=== PATIENT | male | born 1960 | race African-American/Black ===

== ENCOUNTER 2018-08-18 13:08 | Inpatient (IN) | payer OTHER, MEDICAID ==
[~2018-08-18] VITALS: Ht 182.9 cm; Wt 79.8 kg
[2018-08-18 14:11] LABS: BASOPHILS % 0.6 % (0.0-2.0); EOSINOPHILS % 0.8 % (0.0-5.0); HEMATOCRIT. 45.9 % (42.0-52.0); HEMOGLOBIN. 14.8 g/dL (14.0-18.0); LYMPHOCYTES % 34.1 % (20.0-50.0); MEAN CORPUSCULAR HEMOGLOBIN 24.1 pg (28.0-32.0); MEAN CORPUSCULAR VOLUME 74.5 fL (80.0-94.0); MEAN PLATELET VOLUME 9.2 fl (7.4-10.4); MONOCYTES % 8.6 % (2.0-8.0); NEUTROPHILS % 55.9 % (40.0-76.0); PLATELET 151 x1000/uL (130-400); RED BLOOD CELL COUNT 6.16 mill/uL (4.7-6.1)
[2018-08-18 14:16] LABS: CHLORIDE 100 mEq/L (98-107)
[2018-08-18] MEDS ORDERED: ONDANSETRON HCL 4MG/2ML INJ IV STA (14:19)
[2018-08-18] MEDS ORDERED: FAMOTIDINE 20MG/2ML VIAL IV ONE (14:30)
[2018-08-18] MEDS ORDERED: NITROGLYCERIN OINT 1GM/INCH UDPKT TD ONE (14:30)
[2018-08-18] MEDS ORDERED: FUROSEMIDE 40MG/4ML VIAL IV ONE (14:30)
[2018-08-18 15:43] LABS: ETHANOL BLOOD < 10 mg/dL
[2018-08-18 15:59] LABS: CLARITY URINE CLEAR (CLEAR); COLOR URINE DARK YELLOW (YELLOW); KETONES URINE TRACE (NEGATIVE); LEUKOCYTE ESTERASE URINE TRACE (NEGATIVE); NITRITE URINE NEGATIVE (NEGATIVE); OCCULT BLOOD URINE NEGATIVE (NEGATIVE); PROTEIN URINE 2+ (NEGATIVE); SPECIFIC GRAVITY URINE 1.023 (1.005-1.030)
[2018-08-18 16:16] LABS: *AMPHETAMINES SCREEN URINE NEGATIVE (NEGATIVE); *BARBITURATES SCREEN URINE NEGATIVE (NEGATIVE); *BENZODIAZEPINES SCREEN URINE NEGATIVE (NEGATIVE); *COCAINE SCREEN URINE PRESUMTIVE POSITIVE (NEGATIVE)
[2018-08-18 16:17] LABS: CANNABINOID URINE SCREEN NEGATIVE (NEGATIVE); METHADONE URINE SCREEN NEGATIVE (NEGATIVE); OPIATES URINE SCREEN NEGATIVE (NEGATIVE); PHENCYCLIDINE URINE SCREEN NEGATIVE (NEGATIVE)
[2018-08-18] MEDS ORDERED: KETOROLAC 15MG/ML VIAL IV PRN (16:30)
[2018-08-18] MEDS ORDERED: NA PHOS,M-B/NA PHOS,DI-BA ENEMA 118ML PR PRN (16:30)
[2018-08-18] MEDS ORDERED: DOCUSATE SODIUM 100MG CAPSULE PO PRN (16:30)
[2018-08-18] MEDS ORDERED: IPRATROPIUM/ALBUTEROL 0.5-3(2.5)MG/3ML NEB INH PRN (16:30)
[2018-08-18] MEDS ORDERED: CLONIDINE 0.1MG TABLET PO PRN (16:30)
[2018-08-18] MEDS ORDERED: TRAMADOL 50MG TABLET PO PRN (16:30)
[2018-08-18] MEDS ORDERED: LORAZEPAM 0.5MG TABLET PO PRN (16:30)
[2018-08-18] MEDS ORDERED: ACETAMINOPHEN 325MG TABLET PO PRN (16:30)
[2018-08-18] MEDS ORDERED: ONDANSETRON HCL 4MG/2ML INJ IV PRN (16:30)
[2018-08-18] MEDS ORDERED: NITROGLYCERIN 0.4MG TABLET SL SL PRN (16:30)
[2018-08-18] MEDS ORDERED: DIPHENHYDRAMINE 50MG/ML VIAL IV PRN (16:30)
[2018-08-18] MEDS ORDERED: GUAIFENESIN 200MG/10ML SUGAR FREE UDC PO PRN (16:30)
[2018-08-18] MEDS ORDERED: MAGNESIUM/ALUMINUM HYDROXIDE/SIMETHICONE 30ML UDC PO PRN (16:30)
[2018-08-18] MEDS: DILTIAZEM HCL 60MG TABLET PO SCH ×3 (19:00→23:50)
[2018-08-18 19:45] VITALS: BP 116/60
[2018-08-18 20:00] VITALS: BP 90/72
[2018-08-18] MEDS ORDERED: CEFTRIAXONE 1 G PREMIX 50 ML IV SCH (20:00)
[2018-08-18] MEDS ORDERED: ENOXAPARIN 40MG/0.4ML SYR SUBCUT SCH (20:00)
[2018-08-18] MEDS: FUROSEMIDE 40MG/4ML VIAL IVP SCH (20:05)
[2018-08-18] MEDS: FAMOTIDINE 20MG TABLET PO SCH (20:06)
[2018-08-18] MEDS ORDERED: ZOLPIDEM TARTRATE 5MG TABLET PO PRN (21:00)
[2018-08-18] MEDS ORDERED: AZITHROMYCIN 500 MG in DEXT 5% WATER 250 ML IV SCH (21:00)
[2018-08-18 23:50] VITALS: BP 106/79
[2018-08-19 04:00] VITALS: BP 124/95
[2018-08-19] MEDS: DILTIAZEM HCL 60MG TABLET PO SCH ×3 (05:39→17:32)
[2018-08-19] MEDS: FUROSEMIDE 40MG/4ML VIAL IVP SCH ×2 (06:42→17:38)
[2018-08-19 07:35] VITALS: BP 125/87
[2018-08-19] MEDS ORDERED: ASPIRIN 325MG EC TABLET PO SCH (09:00)
[2018-08-19 09:03] LABS: CREATINE KINASE MB FRACTION 3.7 ng/mL (0.5-3.6)
[2018-08-19] MEDS: FAMOTIDINE 20MG TABLET PO SCH (09:07)
[2018-08-19 12:00] VITALS: BP 120/94
[2018-08-19] MEDS: METOLAZONE 10MG TABLET PO NR ×2 (12:41→13:41)
[2018-08-19 16:00] VITALS: BP 106/75
[2018-08-19 18:53] VITALS: BP_SYST 104; BP_SYST 106; BP_DIAS 68; BP_DIAS 75
== END 2018-08-19 21:15 | disposition short-term general hospital (02) | DRG 917 ==
LOC: ER 14:21 → 8WST 15:05 → EDBEDREQ 15:09 → EDBEDREQTM 15:09 → ENRESERV 16:24
PROVIDERS: ADMIT Internal Medicine; ATTEND Internal Medicine
DX: T40.5X1A Poisoning by cocaine, accidental (unintentional), initial encounter (principal); I50.43 Acute on chronic combined systolic (congestive) and diastolic (congestive) heart failure; J96.00 Acute respiratory failure, unspecified whether with hypoxia or hypercapnia; A41.9 Sepsis, unspecified organism; E44.0 Moderate protein-calorie malnutrition; E87.5 Hyperkalemia; F14.10 Cocaine abuse, uncomplicated; Z68.23 Body mass index [BMI] 23.0-23.9, adult; F17.200 Nicotine dependence, unspecified, uncomplicated; K76.1 Chronic passive congestion of liver; Z53.20 Procedure and treatment not carried out because of patient's decision for unspecified reasons; Z91.14 Patient's other noncompliance with medication regimen; Y92.89 Other specified places as the place of occurrence of the external cause
CPT/HCPCS: 36415; 71045; 74176; 80053; 80061; 80305; 81003; 82550; 82553; 83036; 83605; 83690; 83880; 84484; 85025; 93005; 93306; 93970; 94640; 96374; 96375; 99285; G0482; J0456; J0696; J1200; J1940; J2405; J3490; J7040; J7060; J7620

== ENCOUNTER 2018-09-21 14:39 | Emergency (ER) | payer OTHER, MEDICAID ==
[~2018-09-21] VITALS: Ht 172.7 cm; Wt 75.0 kg
[~2018-09-21 14:39] MED LIST: LIDOCAINE HCL/PF 1% 2ML VIAL ONE
[2018-09-21] MEDS ORDERED: IPRATROPIUM BROMIDE (0.02%) 0.5MG/2.5ML NEB HHN STA (14:57)
[2018-09-21] MEDS ORDERED: ALBUTEROL (0.083%) 2.5MG/3ML NEB HHN SCH (15:00)
[2018-09-21 16:47] LABS: BASOPHILS % 1.1 % (0.0-2.0); EOSINOPHILS % 2.2 % (0.0-5.0); HEMATOCRIT. 44.8 % (42.0-52.0); HEMOGLOBIN. 14.5 g/dL (14.0-18.0); LYMPHOCYTES % 39.4 % (20.0-50.0); MEAN CORPUSCULAR HEMOGLOBIN 23.8 pg (28.0-32.0); MEAN CORPUSCULAR VOLUME 73.5 fL (80.0-94.0); MONOCYTES % 10.6 % (2.0-8.0); NEUTROPHILS % 46.7 % (40.0-76.0); PLATELET 226 x1000/uL (130-400)
[2018-09-21 16:52] LABS: INR 1.6; PROTHROMBIN TIME 16.4 sec (9.1-11.1)
[2018-09-21 16:59] LABS: CHLORIDE 98 mEq/L (98-107)
[2018-09-21] MEDS ORDERED: FUROSEMIDE 100MG/10ML VIAL IVP ONE (17:30)
[2018-09-21] MEDS ORDERED: MORPHINE SULFATE 4 MG/ML CPJ (NOT FOR IM USE) IV ONE (18:15)
[2018-09-21 19:27] LABS: CLARITY URINE CLEAR (CLEAR); COLOR URINE DARK YELLOW (YELLOW); KETONES URINE NEGATIVE (NEGATIVE); LEUKOCYTE ESTERASE URINE NEGATIVE (NEGATIVE); NITRITE URINE NEGATIVE (NEGATIVE); OCCULT BLOOD URINE NEGATIVE (NEGATIVE); PH URINE 5.5 (4.5-8.0); PROTEIN URINE 1+ (NEGATIVE); SPECIFIC GRAVITY URINE 1.011 (1.005-1.030)
[2018-09-21 20:29] VITALS: BP 113/76
== END 2018-09-21 21:14 | disposition short-term general hospital (02) ==
LOC: ER 15:02 → CANBEDREQ 18:56 → ER 21:14
DX: I11.0 Hypertensive heart disease with heart failure (principal); I50.9 Heart failure, unspecified; K76.9 Liver disease, unspecified; J44.9 Chronic obstructive pulmonary disease, unspecified; E78.00 Pure hypercholesterolemia, unspecified; F20.9 Schizophrenia, unspecified; F17.200 Nicotine dependence, unspecified, uncomplicated
CPT/HCPCS: 36415; 71045; 74176; 80053; 81003; 83605; 83880; 84484; 85025; 85610; 93005; 96374; 96375; 99285; J1940; J2270; J3490